=== PATIENT | male | born 1990 | race Two or more races ===

== ENCOUNTER 2018-12-14 04:17 | Emergency (ER) | payer MEDICAID, OTHER ==
[~2018-12-14] VITALS: Ht 172.7 cm; Wt 95.3 kg
[2018-12-14] MEDS ORDERED: SODIUM CHLORIDE 0.9% 1,000 ML IV ONE (05:00)
[2018-12-14] MEDS ORDERED: ONDANSETRON HCL 4 MG/2 ML VIAL IV ONE (05:00)
[2018-12-14] MEDS ORDERED: MORPHINE SULFATE 4 MG/ML SYR/VIAL IV ONE (05:00)
[2018-12-14 05:43] LABS: Basophils # (auto) 0.1 uL; Basophils % (auto) 0.5 % (0.0-2.0); Eosinophils # (auto) 0.4 uL; Eosinophils % (auto) 3.2 % (0.0-7.0); Hematocrit 44.6 % (41.0-53.0); Hemoglobin 14.9 g/dL (13.5-17.5); Lymphocytes # (auto) 2.2 uL; Mean Corpuscular Hemoglobin 29.5 pg (28.0-32.0); Mean Corpuscular Hgb Conc. 33.4 g/dL (32.0-36.0); Mean Corpuscular Volume 88.3 fL (80.0-100.0); Monocytes # (auto) 0.9 uL; Monocytes % (auto) 7.9 % (0.0-12.0); Neutrophils # (auto) 8.1 uL; Neutrophils % (auto) 69.4 % (37.0-80.0); Platelet Count (auto) 237 10^3/uL (140-450); Red Blood Cells 5.06 10^6/uL (4.5-5.90); Red Cell Distribution Width 14.1 % (11.8-14.3); White Blood Cell 11.7 10^3/uL (4.4-10.8)
[2018-12-14 05:51] LABS: Albumin 3.9 g/dL (3.4-5.0); BUN/Creatinine Ratio 16.5; Calcium 9.1 mg/dL (8.5-10.1); Magnesium 2.2 mg/dL (1.6-2.6); Potassium 3.6 mmol/L (3.5-5.1)
[2018-12-14 05:54] LABS: Bilirubin, Total 0.4 mg/dL (0.2-1.0); Total Protein 7.3 g/dL (6.4-8.2)
[2018-12-14 05:56] LABS: INR < 0.93 (0.9-1.15); Partial Thromboplastin Time 29.3 sec (23.64-32.05)
[2018-12-14 07:43] VITALS: BP 126/81
[2018-12-14] MEDS ORDERED: PANTOPRAZOLE 40 MG/10 ML VIAL INJ IV ONE (07:45)
== END 2018-12-14 08:58 | disposition home or self-care (01) ==
LOC: EDBD 04:17 → ER 04:28
DX: K29.70 Gastritis, unspecified, without bleeding (principal)
CPT/HCPCS: 36415; 74176; 80053; 82150; 83690; 83735; 85025; 85610; 85730; 96361; 96374; 96375; 99284; C9113; J2270; J2405; J7030

== ENCOUNTER 2019-01-13 02:49 | Emergency (ER) | payer SELFPAY ==
[~2019-01-13] VITALS: Ht 172.7 cm; Wt 81.6 kg
[2019-01-13 03:26] LABS: Basophils # (auto) 0.1 uL; Basophils % (auto) 1.2 % (0.0-2.0); Eosinophils # (auto) 0.3 uL; Eosinophils % (auto) 3.6 % (0.0-7.0); Hematocrit 45.8 % (41.0-53.0); Hemoglobin 15.7 g/dL (13.5-17.5); Lymphocytes # (auto) 4.2 uL; Lymphocytes % (auto) 46.7 % (10.0-50.0); Mean Corpuscular Hemoglobin 30.1 pg (28.0-32.0); Mean Corpuscular Hgb Conc. 34.4 g/dL (32.0-36.0); Mean Corpuscular Volume 87.4 fL (80.0-100.0); Monocytes # (auto) 0.6 uL; Monocytes % (auto) 6.3 % (0.0-12.0); Neutrophils # (auto) 3.8 uL; Neutrophils % (auto) 42.2 % (37.0-80.0); Nucleated Red Blood Cells % 0.1 %; Platelet Count (auto) 218 10^3/uL (140-450); Red Blood Cells 5.23 10^6/uL (4.5-5.90)
[2019-01-13 03:48] LABS: Albumin 3.9 g/dL (3.4-5.0); BUN/Creatinine Ratio 19.1; Calcium 9.1 mg/dL (8.5-10.1); Potassium 3.8 mmol/L (3.5-5.1)
[2019-01-13 03:51] LABS: Bilirubin, Total 0.2 mg/dL (0.2-1.0); Total Protein 6.9 g/dL (6.4-8.2)
[2019-01-13] MEDS ORDERED: MORPHINE SULFATE 4 MG/ML SYR/VIAL IV ONE (04:00)
[2019-01-13] MEDS ORDERED: ONDANSETRON HCL 4 MG/2 ML VIAL IV ONE (04:00)
[2019-01-13] MEDS ORDERED: SODIUM CHLORIDE 0.9% 1,000 ML IV ONE ×2 (04:00→05:45)
[2019-01-13] MEDS ORDERED: IOHEXOL 300 MG/ML 100ML BOTTLE IJ ONE (04:09)
[2019-01-13] MEDS ORDERED: FAMOTIDINE INJECTION 40 MG in SODIUM CHL 0.9% 100 ML IV ONE (04:45)
[2019-01-13 10:57] LABS: Urine Bacteria NONE SEEN /hpf (None Seen); Urine Blood Negative /uL (Negative); Urine Mucus FEW (None Seen); Urine WBC <1 /hpf (0 - 3)
[2019-01-13 11:07] LABS: Urine Specific Gravity > 1.050 (1.001-1.035)
[2019-01-13 12:38] VITALS: BP 110/74
== END 2019-01-13 12:41 | disposition home or self-care (01) ==
LOC: ER 02:51
DX: N20.0 Calculus of kidney (principal)
CPT/HCPCS: 36415; 74177; 80053; 81001; 83690; 85025; 96365; 96366; 96375; 99284; J2270; J2405; J3490; J7030; Q9967

== ENCOUNTER 2019-01-31 01:42 | Inpatient (IN) | payer SELFPAY ==
[~2019-01-31] VITALS: Ht 175.3 cm; Wt 103.1 kg
[2019-01-31 02:38] LABS: Basophils # (auto) 0.1 uL; Basophils % (auto) 0.5 % (0.0-2.0); Eosinophils # (auto) 0.2 uL; Eosinophils % (auto) 1.8 % (0.0-7.0); Lymphocytes # (auto) 3.1 uL; Lymphocytes % (auto) 24.8 % (10.0-50.0); Mean Corpuscular Hemoglobin 29.6 pg (28.0-32.0); Mean Corpuscular Hgb Conc. 33.3 g/dL (32.0-36.0); Mean Corpuscular Volume 88.7 fL (80.0-100.0); Monocytes # (auto) 0.9 uL; Monocytes % (auto) 6.9 % (0.0-12.0); Neutrophils # (auto) 8.1 uL; Platelet Count (auto) 249 10^3/uL (140-450); Red Blood Cells 5.41 10^6/uL (4.5-5.90); Red Cell Distribution Width 13.9 % (11.8-14.3); White Blood Cell 12.3 10^3/uL (4.4-10.8)
[2019-01-31 02:53] LABS: Albumin 3.8 g/dL (3.4-5.0); BUN/Creatinine Ratio 19.4; Calcium 9.3 mg/dL (8.5-10.1); Potassium 4.1 mmol/L (3.5-5.1)
[2019-01-31 02:56] LABS: Bilirubin, Total 0.2 mg/dL (0.2-1.0); Total Protein 7.2 g/dL (6.4-8.2)
[2019-01-31] MEDS ORDERED: ONDANSETRON HCL 4 MG/2 ML VIAL IV ONE (04:45)
[2019-01-31] MEDS ORDERED: MORPHINE SULFATE 4 MG/ML SYR/VIAL IV ONE (04:45)
[2019-01-31] MEDS ORDERED: cefTRIAXone 1GM/50ML D5W 50 ML IV ONE (05:00)
[2019-01-31] MEDS ORDERED: metroNIDAZOLE 500 MG TAB PO ONE (05:00)
[2019-01-31] MEDS ORDERED: ONDANSETRON HCL 4 MG/2 ML VIAL IV PRN (07:45)
[2019-01-31] MEDS ORDERED: NITROGLYCERIN 0.4 MG SL TAB SL PRN (07:45)
[2019-01-31] MEDS ORDERED: MORPHINE SULF INJ 2 MG/ML SYRINGE 1ML IV PRN (07:45)
[2019-01-31] MEDS: D5W/SOD CHL 0.45%/KCL 20MEQ 1,000 ML IV SCH ×2 (08:19→21:35)
[2019-01-31] MEDS ORDERED: cefTRIAXone 1GM/50ML D5W 50 ML IV SCH (09:00)
[2019-01-31] MEDS: FAMOTIDINE (10MG/ML) 2ML VL IV SCH ×2 (10:44→21:35)
[2019-01-31] MEDS: LEVOFLOXACIN 500MG 100 ML IV SCH (10:44)
[2019-01-31 12:00] VITALS: BP 119/66
--- NOTE | 2019-01-31 12:05 | NUR ---
MS admit from ER: OMAR SALAZAR admitted to tele/MS AFTER NO SBAR received. Patient oriented to PHOEBE MILLER, RN primary RN, unit, room, bed, and unit policies regarding patient care and visiting hours. Patient weighed by bedscale and encouraged to call if they need something. All questions and concerns addressed, patient verbalized understanding.
--- NOTE | 2019-01-31 13:21 | NUR ---
Dr. Cornejo at bedside. Discussed POC with patient. Patient verbalized thoughts of leaving AMA, but stated "I will think about it." Patient educated on risk of leaving at this time. Will continue to monitor patient.
[2019-01-31 13:36] VITALS: BP 119/66
[2019-01-31] MEDS: metroNIDAZOLE 500MG/100ML 100 ML IV SCH ×2 (13:43→21:35)
[2019-01-31 13:49] LABS: INR < 0.93 (0.9-1.15); Partial Thromboplastin Time 26.9 sec (23.64-32.05)
--- NOTE | 2019-01-31 14:00 | NUR ---
Patient states allergic reaction in past to antibiotic but does not remember name. Patient states "I got itchy and my face started to swell, but I don't remember the name." Patient educated on need to call if symptoms begin again. Will continue to monitor patient.
[2019-01-31 16:54] VITALS: BP 102/61
--- NOTE | 2019-01-31 19:40 | NUR ---
Opening Shift Note Assumed care of patient, awake and alert. No S/S of distress/SOB or pain. Instructed on POC and to call for assist PRN, will continue to monitor for changes Q1hr and PRN.
[2019-01-31 22:00] VITALS: BP 100/48
--- NOTE | 2019-01-31 22:00 | NUR ---
Patient signed an AMA to smoke.
--- NOTE | 2019-01-31 22:45 | NUR ---
Patient went outside to smoke
--- NOTE | 2019-01-31 23:10 | NUR ---
Patient back in his room
[2019-02-01] MEDS: D5W/SOD CHL 0.45%/KCL 20MEQ 1,000 ML IV SCH ×3 (03:45→22:08)
[2019-02-01] MEDS: metroNIDAZOLE 500MG/100ML 100 ML IV SCH ×3 (05:21→22:04)
[2019-02-01 05:38] VITALS: BP 95/61
[2019-02-01 06:34] LABS: INR 0.95 (0.9-1.15)
[2019-02-01 06:47] LABS: Basophils # (auto) 0 uL; Basophils % (auto) 0.5 % (0.0-2.0); Eosinophils # (auto) 0.2 uL; Eosinophils % (auto) 3.1 % (0.0-7.0); Hematocrit 42.9 % (41.0-53.0); Hemoglobin 14.3 g/dL (13.5-17.5); Lymphocytes # (auto) 2.8 uL; Lymphocytes % (auto) 46.2 % (10.0-50.0); Mean Corpuscular Hemoglobin 29.8 pg (28.0-32.0); Mean Corpuscular Hgb Conc. 33.3 g/dL (32.0-36.0); Mean Corpuscular Volume 89.5 fL (80.0-100.0); Monocytes # (auto) 0.4 uL; Monocytes % (auto) 6.8 % (0.0-12.0); Neutrophils # (auto) 2.6 uL; Neutrophils % (auto) 43.4 % (37.0-80.0); Nucleated Red Blood Cells % 0.1 %; Platelet Count (auto) 214 10^3/uL (140-450); Red Cell Distribution Width 13.8 % (11.8-14.3); White Blood Cell 6.1 10^3/uL (4.4-10.8)
[2019-02-01 06:51] LABS: Albumin 3.1 g/dL (3.4-5.0); Calcium 8.4 mg/dL (8.5-10.1); Potassium 4.2 mmol/L (3.5-5.1)
[2019-02-01 06:54] LABS: BUN/Creatinine Ratio 15.1; Bilirubin, Total 0.5 mg/dL (0.2-1.0); Total Protein 6.2 g/dL (6.4-8.2)
--- NOTE | 2019-02-01 07:15 | NUR ---
Opening Shift Note Report received from NOC RN, rounds made with student nurse to introduce staff to patient. Patient awake, alert and oriented. Discussed POC with patient regarding NPO status and possible procedure today, patient verbalized understanding. Patient knows to notify staff if he leaves floor to smoke, AMA paper already on chart.
[2019-02-01 09:00] VITALS: BP 98/58
[2019-02-01] MEDS: LEVOFLOXACIN 500MG 100 ML IV SCH (09:52)
[2019-02-01] MEDS: FAMOTIDINE (10MG/ML) 2ML VL IV SCH ×2 (09:52→22:04)
[2019-02-01 10:36] LABS: Urine WBC None Seen /hpf (0 - 3)
[2019-02-01 10:47] LABS: Urine Bacteria NONE SEEN /hpf (None Seen); Urine Blood Negative /uL (Negative); Urine Mucus FEW (None Seen); Urine Specific Gravity 1.024 (1.001-1.035)
[2019-02-01 10:58] LABS: Amphetamine Screen, Urine NEGATIVE (NEGATIVE); Barbiturate Scree,Urine NEGATIVE (NEGATIVE); Benzodiazephine Screen, Urine NEGATIVE (NEGATIVE); Cannabinoid Screen, Urine POSITIVE (NEGATIVE); Cocaine Screen, Urine NEGATIVE (NEGATIVE); Opiate Scree,Urine NEGATIVE (NEGATIVE); Phencyclidine Screen, Urine NEGATIVE (NEGATIVE)
[2019-02-01 12:30] VITALS: BP 117/82
[2019-02-01 16:36] VITALS: BP 132/92
[2019-02-01 21:52] VITALS: BP 133/82
--- NOTE | 2019-02-01 22:08 | NUR ---
Patient out to smoke.
--- NOTE | 2019-02-01 22:28 | NUR ---
Patient back in room
[2019-02-02 04:35] VITALS: BP 101/66
--- NOTE | 2019-02-02 05:35 | NUR ---
Got patient ready for his surgical procedure today. Change his bedding and gave him wipes to wipe himself.
[2019-02-02] MEDS: metroNIDAZOLE 500MG/100ML 100 ML IV SCH ×3 (05:39→22:11)
[2019-02-02 08:00] VITALS: BP 114/77
--- NOTE | 2019-02-02 08:00 | NUR ---
Pt taken to pre op for lap saloni.
[2019-02-02] MEDS ORDERED: ceFAZolin 1GM/50ML 50 ML IV ONE (08:31)
[2019-02-02] MEDS ORDERED: POVIDONE IODINE 5% TOPICAL CREAM TOP ONE (09:33)
[2019-02-02] MEDS ORDERED: MIDAZOLAM HCL 1MG/1ML-2 ML VIAL IV PRN (09:45)
[2019-02-02] MEDS ORDERED: KETOROLAC TROMETH 30 MG/ML 1ML VIAL IV ONE (09:45)
[2019-02-02] MEDS ORDERED: LABETALOL HCL 5 MG/ML 4ML SYRINGE IV PRN (09:45)
[2019-02-02] MEDS: D5W/SOD CHL 0.45%/KCL 20MEQ 1,000 ML IV SCH ×2 (09:45→19:45)
[2019-02-02] MEDS ORDERED: MORPHINE SULFATE 4 MG/ML SYR/VIAL IV PRN (09:45)
[2019-02-02] MEDS ORDERED: ONDANSETRON HCL 4 MG/2 ML VIAL IV PRN (09:45)
[2019-02-02] MEDS ORDERED: ePHEDrine SULFATE 50 MG/ML AMP IV PRN (09:45)
[2019-02-02] MEDS ORDERED: DexAMETHasone SOD PHOS 10MG/1ML VIAL INJ ONE (09:46)
[2019-02-02] MEDS ORDERED: fentaNYL CITRATE 100 MCG/2 ML VL ONE ×2 (09:46→10:36)
[2019-02-02] MEDS ORDERED: MEPERIDINE HCL (50 MG/ML) 1 ML VIAL ONE (09:46)
[2019-02-02] MEDS ORDERED: MIDAZOLAM HCL 1MG/1ML-2 ML VIAL ONE (09:46)
[2019-02-02] MEDS ORDERED: PROPOFOL 10 MG/ML 20 ML IV ONE (09:46)
[2019-02-02] MEDS ORDERED: ROCURONIUM 10MG/ML 10ML VIAL IV ONE (09:47)
[2019-02-02] MEDS: FAMOTIDINE (10MG/ML) 2ML VL IV SCH ×2 (10:00→22:12)
[2019-02-02] MEDS: LEVOFLOXACIN 500MG 100 ML IV SCH (10:00)
[2019-02-02] MEDS ORDERED: KETOROLAC TROMETH 30 MG/ML 1ML VIAL ONE (10:16)
[2019-02-02] MEDS ORDERED: ONDANSETRON HCL 4 MG/2 ML VIAL ONE (10:17)
[2019-02-02] MEDS ORDERED: NEOSTIGMINE 1 MG/ML INJ (10mg/10ML VIAL) ONE (10:25)
[2019-02-02] MEDS ORDERED: GLYCOPYRROLATE 0.2 MG/ML 1ML VIAL ONE (10:25)
[2019-02-02] MEDS: HYDROmorphone HCL 2 MG/ML VL IV PRN ×5 (11:14→22:13)
[2019-02-02 12:00] VITALS: BP 110/76
--- NOTE | 2019-02-02 12:15 | NUR ---
Dr. Cornejo at bed side to see pt.
--- NOTE | 2019-02-02 12:15 | NUR ---
Pt back in the room from surgery, mid abdomen incision X 2, rt abdomen LIZET drain, abdominal binder on, Incentive spirometer given and educated on use, 10X/1 hr, call light within reach, will continue to monitor pt.
--- NOTE | 2019-02-02 15:18 | NUR ---
NUTRITION ASSESSMENT NOTES Please refer to link notes of nutrition screen form filed under the intervention section of the plan of care for further details. Est. Needs: 2000 kcal to 2500 kcal (20-25 kcal/kgBW), 79 gms to 99 gms pro (0.8-1.0 gms/kgBW). Will continue to monitor pertinent labs and reassess nutrient need prn Thank you. Addendum: 02/02/19 at [address] Amended: Links added.
[2019-02-02 17:00] VITALS: BP 108/58
--- NOTE | 2019-02-02 18:06 | NUR ---
LIZET DRAIN OBTAINED 30 ML OF BRIGHT RED FLUID,
--- NOTE | 2019-02-02 19:50 | NUR ---
Opening Shift Note Assumed care of patient, awake and alert. No S/S of distress/SOB. Patient complain of a little pain but said he can tolerate it. Abdominal binder, surgical incision in dry and intact. Instructed on POC and to call for assist PRN, will continue to monitor for changes Q1hr and PRN.
[2019-02-02] MEDS ORDERED: HYDROcodone-ACET 7.5/325MG TAB PO ONE (21:15)
[2019-02-02 21:59] VITALS: BP 98/58
[2019-02-03] MEDS: D5W/SOD CHL 0.45%/KCL 20MEQ 1,000 ML IV SCH (03:21)
[2019-02-03] MEDS: HYDROmorphone HCL 2 MG/ML VL IV PRN ×2 (04:50→09:27)
[2019-02-03 05:00] VITALS: BP 103/65
[2019-02-03] MEDS: metroNIDAZOLE 500MG/100ML 100 ML IV SCH (05:58)
[2019-02-03 06:45] LABS: Basophils # (auto) 0 uL; Basophils % (auto) 0.2 % (0.0-2.0); Eosinophils # (auto) 0 uL; Hematocrit 41.1 % (41.0-53.0); Hemoglobin 13.8 g/dL (13.5-17.5); Lymphocytes # (auto) 1.4 uL; Lymphocytes % (auto) 12.9 % (10.0-50.0); Mean Corpuscular Hgb Conc. 33.6 g/dL (32.0-36.0); Mean Corpuscular Volume 89.2 fL (80.0-100.0); Monocytes # (auto) 0.6 uL; Monocytes % (auto) 5.9 % (0.0-12.0); Neutrophils # (auto) 8.9 uL; Nucleated Red Blood Cells % 0.1 %; Platelet Count (auto) 223 10^3/uL (140-450); Red Blood Cells 4.61 10^6/uL (4.5-5.90); Red Cell Distribution Width 13.4 % (11.8-14.3); White Blood Cell 10.9 10^3/uL (4.4-10.8)
[2019-02-03 07:05] LABS: Bilirubin, Total 0.5 mg/dL (0.2-1.0)
[2019-02-03 08:00] VITALS: BP 116/68
[2019-02-03] MEDS: FAMOTIDINE (10MG/ML) 2ML VL IV SCH (10:20)
[2019-02-03] MEDS: LEVOFLOXACIN 500MG 100 ML IV SCH (10:21)
[2019-02-03] MEDS ORDERED: HYDROcodone-ACET 5/325MG TAB PO PRN (11:00)
[2019-02-03 13:00] VITALS: BP 117/72
[2019-02-03] MEDS ORDERED: metroNIDAZOLE 500 MG TAB PO SCH (14:00)
[2019-02-03 15:03] VITALS: BP 117/72
--- NOTE | 2019-02-03 16:03 | NUR ---
DISCHARGE NOTE PATIENT ALERT AND ORIENTED X4. ALL DISCHARGE INSTRUCTIONS GIVEN ALL QUESTIONS CONCERNS ADDRESSED. DRESSING TO LIZET DRAIN SATURATED WITH BLOODY DRAINAGE, DRESSINGS CHANGED. MD LOVE INFORMED AND VERBALIZED ITS OKAY TO CHANGE DRESSINGS. PATIENT EDUCATED ON LIZET DRAIN. IV REMOVED USING ASEPTIC TECHNIQUE CATHETER INTACT PRESSURE APPLIED PATIENT TOLERATED WELL. PATIENT AMBULATED USING A STEADY GAIT TO PERSONAL VEHICLE. PATIENT DENIES ALL PAIN SOB OR ANY DISTRESS AT THIS TIME.
--- NOTE | 2019-02-03 16:03 | NUR ---
appointment made with dr perales on 02/08 at 10:15. patient informed and verbalized understanding
[2019-02-04] MEDS ORDERED: LEVOFLOXACIN 500 MG TAB PO SCH (10:00)
[2019-02-04] MEDS ORDERED: FAMOTIDINE 20 MG TAB PO SCH (10:00)
== END 2019-02-03 16:05 | disposition home or self-care (01) | DRG 417 ==
LOC: EDBD 01:42 → ER 01:48 → OVERFLOW 01:49 → EAST 12:05
PROVIDERS: ADMIT Nurse Practitioner Acute Care; ATTEND Internal Medicine
PROC: 0FT44ZZ Resection of Gallbladder, Percutaneous Endoscopic Approach (ICD-10-PCS; principal; 2019-02-02 09:50)
DX: K80.12 Calculus of gallbladder with acute and chronic cholecystitis without obstruction (principal); K85.90 Acute pancreatitis without necrosis or infection, unspecified; R65.10 Systemic inflammatory response syndrome (SIRS) of non-infectious origin without acute organ dysfunction; E66.9 Obesity, unspecified; F17.210 Nicotine dependence, cigarettes, uncomplicated; D72.829 Elevated white blood cell count, unspecified; Z80.3 Family history of malignant neoplasm of breast; Z68.33 Body mass index [BMI] 33.0-33.9, adult; Z87.11 Personal history of peptic ulcer disease; Z87.442 Personal history of urinary calculi; Z90.5 Acquired absence of kidney
CPT/HCPCS: 36415; 74176; 74181; 76705; 76775; 80053; 80307; 81001; 82150; 82247; 83690; 85025; 85610; 85730; 86850; 86900; 86901; 96365; 96367; 96375; G0378; J0690; J0696; J1100; J1885; J1956; J2250; J2405; J2704; J3490